=== PATIENT | female | born 1945 | race Caucasian/White ===

== ENCOUNTER 2022-03-29 15:45 | Observation (INO) ==
[2022-03-29 17:17] VITALS: BMI 32.1
[2022-03-29] MEDS: ROCEPHIN VIAL 1 GRAM 1 G in NS 100 ML IV 100 ML IV SCH (17:54)
[2022-03-29] MEDS: TORADOL 30 MG VIAL IVP PRN (17:55)
[2022-03-29] MEDS: NS 1,000 ML IV 1,000 ML IV SCH (17:55)
[2022-03-29 17:58] LABS: EOSINOPHILS # (AUTO) 0.3 x10^3/uL (0.0-0.2); EOSINOPHILS % (AUTO) 4.9 % (0.9-2.9); ERYTHROCYTE SEDIMENTATION RATE 19 MM/HOUR (0-20); HEMOGLOBIN 10.8 g/dL (12.0-16.0); LYMPHOCYTES # (AUTO) 1.3 X10^3/uL (1.3-2.9); MONOCYTES # (AUTO) 0.3 x10^3/uL (0.3-0.8)
[2022-03-29 18:04] LABS: BASOPHILS # (AUTO) 0.1 X10^3/uL (0.0-0.1); BASOPHILS % (AUTO) 1.1 % (0.2-1.0); HEMATOCRIT 30.7 % (36.0-47.0); LYMPHOCYTES % (AUTO) 22.3 % (21.0-51.0); MEAN CORPUSCULAR HEMOGLOBIN 28.2 pg (27.0-34.0); MEAN CORPUSCULAR HGB CONC 35.3 g/dL (33.0-35.0); MEAN CORPUSCULAR VOLUME 79.9 fL (80.0-100.0); MEAN PLATELET VOLUME 9.3 fL (7.4-11.0); MONOCYTES % (AUTO) 4.8 % (0.0-13.0); NEUTROPHILS % (AUTO) 66.9 % (42.0-75.0); RED BLOOD COUNT 3.85 X10^6/uL (3.5-5.4); RED CELL DISTRIBUTION WIDTH 15.1 % (11.6-16.5); WHITE BLOOD COUNT 5.9 X10^3/uL (3.6-10.0)
--- NOTE | 2022-03-29 18:07 | RAD ---
HISTORYWEAKNESS, DIZZINESSSTUDYCHEST, 1 VIEWCOMPARISONDeceer 2019[facility] AP portable projection, 1 imageFINDINGSNo cardiomegaly.No focal airspace disease.No pleural effusion.No pneumothorax.No acute osseous abnormality.IMPRESSIONNo imaging findings of acute cardiopulmonary disease.Electronically signed by: Harrison Doss (Mar 29, 2022 18:06:13)
[2022-03-29 18:22] LABS: RHEUMATOID FACTOR NEGATIVE (NEGATIVE)
[2022-03-29 18:25] LABS: ALANINE AMINOTRANSFERASE 26 Units/L (12-78); ALBUMIN 3.7 g/dL (3.4-5.0); ALKALINE PHOSPHATASE 67 Units/L (46-116); ASPARTATE AMINO TRANSFERASE 31 Units/L (15-37); BLOOD UREA NITROGEN 22 mg/dL (7-18); CALCIUM 9.5 mg/dL (8.5-10.1); CHLORIDE 99 mmol/L (98-107); COR NA(FOR HYPERGLY) 138 mmol/L (136-145); CREATINE KINASE 102 Units/L (26-192); CREATININE 1.08 mg/dL (0.55-1.02); FREE T4 (FREE THYROXINE) 0.87 ng/dL (0.76-1.46); SODIUM 136 mmol/L (136-145); TOTAL PROTEIN 7.2 g/dL (6.4-8.2); TSH (3RD GENERATION) 2.203 uIU/mL (0.358-3.74); eGFR NON BLACK RACES 52 (>60)
[2022-03-29 18:27] LABS: BILIRUBIN,URINE 1+ (NEGATIVE); BLOOD/HEMOGLOBIN,URINE 2+ (NEGATIVE); GLUCOSE, URINE NEGATIVE (NEGATIVE); KETONES,URINE 1+ (NEGATIVE); LEUKOCYTE ESTERASE ,URINE 3+ (NEGATIVE); NITRITES,URINE NEGATIVE (NEGATIVE); PROTEIN,URINE 2+ (NEGATIVE); UROBILINOGEN,URINE 2+ (NORMAL)
[2022-03-29 18:39] LABS: APPEARANCE,URINE HAZY (CLEAR); BACTERIA,URINE TRACE /HPF (NEGATIVE); COLOR,URINE YELLOW (YELLOW); SQUAMOUS EPITHELIAL CELL,UR MODERATE /HPF (NEGATIVE)
[2022-03-29] MEDS: AMBIEN PO PRN (20:22)
[2022-03-30] MEDS: NS 1,000 ML IV 1,000 ML IV SCH ×4 (03:21→18:15)
[2022-03-30 06:20] LABS: BASOPHILS % (AUTO) 0.7 % (0.2-1.0); EOSINOPHILS # (AUTO) 0.3 x10^3/uL (0.0-0.2); EOSINOPHILS % (AUTO) 5.4 % (0.9-2.9); HEMATOCRIT 28.9 % (36.0-47.0); HEMOGLOBIN 10.2 g/dL (12.0-16.0); LYMPHOCYTES # (AUTO) 1.8 X10^3/uL (1.3-2.9); LYMPHOCYTES % (AUTO) 31.2 % (21.0-51.0); MEAN CORPUSCULAR HEMOGLOBIN 28.1 pg (27.0-34.0); MEAN CORPUSCULAR HGB CONC 35.3 g/dL (33.0-35.0); MEAN CORPUSCULAR VOLUME 79.7 fL (80.0-100.0); MEAN PLATELET VOLUME 9.3 fL (7.4-11.0); MONOCYTES # (AUTO) 0.4 x10^3/uL (0.3-0.8); MONOCYTES % (AUTO) 6.7 % (0.0-13.0); NEUTROPHILS # (AUTO) 3.3 x10^3/uL (2.2-4.8); RED BLOOD COUNT 3.62 X10^6/uL (3.5-5.4); RED CELL DISTRIBUTION WIDTH 15.1 % (11.6-16.5); WHITE BLOOD COUNT 5.8 X10^3/uL (3.6-10.0)
[2022-03-30 06:42] LABS: ALANINE AMINOTRANSFERASE 21 Units/L (12-78); ALBUMIN 3.2 g/dL (3.4-5.0); ALKALINE PHOSPHATASE 57 Units/L (46-116); ASPARTATE AMINO TRANSFERASE 18 Units/L (15-37); BLOOD UREA NITROGEN 26 mg/dL (7-18); CARBON DIOXIDE 26.4 mmol/L (21-32); CHLORIDE 104 mmol/L (98-107); COR CA(FOR HYPOALB) 9.6 mg/dL (8.5-10.1); CREATININE 0.95 mg/dL (0.55-1.02); SODIUM 139 mmol/L (136-145); TOTAL PROTEIN 6.4 g/dL (6.4-8.2); eGFR NON BLACK RACES > 60 (>60)
--- NOTE | 2022-03-30 08:07 | CT ---
HISTORYDizziness, visual disturbanceSTUDYCT head without contrastTechnique: Axial noncontrast images with coronal and sagittal reformats. Dose reduction procedures were used with mA/kv adjusted for body size.COMPARISONNoneFINDINGSThe ventricles, cortical sulci, and other CSF spaces are enlarged consistent with generalized atrophy likely age related. There are no focal areas of abnormal attenuation to suggest recent or remote CVA, hemorrhage, mass lesion, or extra-axial fluid collection. The visualized sinuses are clear. The calvarium is intact. If acute CVA is a strong clinical consideration MRI with diffusion imaging would be of further diagnostic value and should be considered.IMPRESSIONNo acute intracranial abnormality identifiedGeneralized atrophy likely age related.Electronically signed by: ESTIVEN MARK (Mar 30, 2022 08:05:48)
[2022-03-30] MEDS: ROCEPHIN VIAL 1 GRAM 1 G in NS 100 ML IV 100 ML IV SCH (08:53)
[2022-03-30] MEDS: TORADOL 30 MG VIAL IVP PRN ×3 (09:07→21:21)
[2022-03-30] MEDS: LOVENOX INJ 40 MG SYR SC SCH (10:53)
[2022-03-30] MEDS: SOLU-Medrol 40 MG VIAL IVP SCH ×3 (10:53→21:20)
[2022-03-30] MEDS: ANTIVERT TAB 25 MG PO SCH ×2 (10:54→21:20)
--- NOTE | 2022-03-30 11:20 | RAD ---
HISTORYNECK PAINSTUDYX-ray cervical spine three viewsCOMPARISONNoneFINDINGSC7 and T1 are not well visualized on the lateral view. There is reversal of lordosis in the midcervical spine. Mild arthritic facet changes are seen and small posterior osteophytes are seen in the mid cervical spine. No subluxation is seen. No prevertebral soft tissue swelling or C-spine fracture is seen.IMPRESSIONReversed lordosis could be positional or due to muscular spasmMild diffuse degenerative changes are suspected in the cervical spine.Electronically signed by: Jin Villarreal (Mar 30, 2022 11:18:46)
[2022-03-30] MEDS ORDERED: XANAX PO PRN (15:53)
[2022-03-30] MEDS: SYNTHROID 75 mcg TAB PO SCH (17:44)
[2022-03-30] MEDS: AMBIEN PO PRN (21:22)
[2022-03-31] MEDS: SOLU-Medrol 40 MG VIAL IVP SCH (05:28)
[2022-03-31] MEDS: NS 1,000 ML IV 1,000 ML IV SCH (05:29)
[2022-03-31] MEDS: TORADOL 30 MG VIAL IVP PRN (05:31)
[2022-03-31 06:14] LABS: BASOPHILS % (AUTO) 0.1 % (0.2-1.0); HEMATOCRIT 28.4 % (36.0-47.0); LYMPHOCYTES # (AUTO) 1.1 X10^3/uL (1.3-2.9); LYMPHOCYTES % (AUTO) 13.8 % (21.0-51.0); MEAN CORPUSCULAR HEMOGLOBIN 28.2 pg (27.0-34.0); MEAN CORPUSCULAR HGB CONC 35.2 g/dL (33.0-35.0); MEAN PLATELET VOLUME 9.6 fL (7.4-11.0); MONOCYTES # (AUTO) 0.1 x10^3/uL (0.3-0.8); MONOCYTES % (AUTO) 0.6 % (0.0-13.0); NEUTROPHILS # (AUTO) 6.8 x10^3/uL (2.2-4.8); NEUTROPHILS % (AUTO) 85.5 % (42.0-75.0); RED BLOOD COUNT 3.54 X10^6/uL (3.5-5.4); RED CELL DISTRIBUTION WIDTH 14.9 % (11.6-16.5); WHITE BLOOD COUNT 7.9 X10^3/uL (3.6-10.0)
[2022-03-31 06:30] LABS: ALANINE AMINOTRANSFERASE 22 Units/L (12-78); ALBUMIN 3.3 g/dL (3.4-5.0); ALKALINE PHOSPHATASE 58 Units/L (46-116); ASPARTATE AMINO TRANSFERASE 16 Units/L (15-37); BLOOD UREA NITROGEN 18 mg/dL (7-18); CALCIUM 8.2 mg/dL (8.5-10.1); CHLORIDE 103 mmol/L (98-107); COR CA(FOR HYPOALB) 8.8 mg/dL (8.5-10.1); COR NA(FOR HYPERGLY) 139 mmol/L (136-145); CREATININE 0.84 mg/dL (0.55-1.02); SODIUM 138 mmol/L (136-145); TOTAL PROTEIN 6.5 g/dL (6.4-8.2); eGFR NON BLACK RACES > 60 (>60)
[2022-03-31] MEDS ORDERED: MICRO K EXTEN CAP 10 MEQ PO PRN (08:03)
[2022-03-31] MEDS ORDERED: POTASSIUM CHLORIDE LIQ 20 MEQ UDC PO PRN (08:03)
[2022-03-31] MEDS ORDERED: POTASSIUM CHL 40 MEQ/NS 0.45% 500 ML IV PRN (08:03)
[2022-03-31] MEDS ORDERED: K-RIDER 10 MEQ/NS 100 ML 10 MEQ/100 ML BAG IV PRN (08:03)
[2022-03-31] MEDS ORDERED: KLOR-CON PO PRN (08:03)
[2022-03-31] MEDS ORDERED: POTASSIUM CHL 60 MEQ/NS 0.45% 500 ML IV PRN (08:03)
[2022-03-31] MEDS ORDERED: K-DUR TAB 20 MEQ PO PRN (08:03)
[2022-03-31] MEDS: ANTIVERT TAB 25 MG PO SCH (08:38)
[2022-03-31] MEDS: SYNTHROID 75 mcg TAB PO SCH (08:38)
[2022-03-31] MEDS: ROCEPHIN VIAL 1 GRAM 1 G in NS 100 ML IV 100 ML IV SCH (08:39)
[2022-03-31] MEDS: LOVENOX INJ 40 MG SYR SC SCH (08:40)
[2022-03-31 10:43] VITALS: BP 160/79
--- NOTE | 2022-03-31 11:01 | DR.H&P ---
H&P - History & Physical for Day of: H&P Date: 03/29/22 - Chief Complaint Chief Complaint: ACHING ALL OVER, SOB, GENERALIZED PAIN, INCREASED ANXIETY, DIZZINESS, BLURRED VISION - History of Present Illness History of Present Illness: IS A 77 YEAR OLD PATIENT OF OURS. SHE WAS SEEN IN THE OFFICE EARLIER IN THE DAY FOR COMPLAINTS OF ACHING ALL OVER, BILATERAL HAND EDEMA, SHORTNESS OF BREATH, BILATERAL SHOULDER PAIN, BILATERAL HAND AND LEG PAIN, DIZZINESS, AND INCREASED ANXIETY. SHE ALSO DESCRIBES NUMBNESS TO BILATERAL HANDS AND TO THE DORSAL ASPECTS OF BILATERAL FEET. SHE REPORTS THAT SHE STARTED HAVING A HEADACHE AND BLURRED VISION ONE DAY PRIOR TO ARRIVAL. PATIENT REPORTS THAT THE SYMPTOMS STARTED 3-4 DAYS AGO AND HAVE PROGRESSIVELY GOTTEN WORSE. HER PMH INCLUDES: ASTHMA, GERD, ARTHRITIS, LOW BACK PAIN, HYPOTHYROIDISM, HYSTERECTOMY, AND BACK SURGERY. SHE WAS ADMITTED TO THE HOSPITAL OBSERVATION STATUS FOR FURTHER EVALUATION AND TREATMENT. ON ARRIVAL, VITALS WERE: 97.5-79-20-95%RA-177/81. LABS WERE OBTAINED. WBC 5.9, RBC 3.85, HGB 10.8, HCT 30.7, SODIUM 136, POTASSIUM 3.6, CHLORIDE 99, BUN 22, CREATININE 1.08, GLUCOSE 200, CALCIUM 9.5, CREATINE KINASE 102, TROPONIN 4.8, TOTAL PROTEIN 7.2, ALBUMIN 3.7, FREE T4 0.87, TSH 2.203. URINALYSIS REVEALED: WBC 20-30, RBC 5-10, BACTERIA TRACE, LEUKOCYTES 3+, NITRITE NEGATIVE. RHEUMATOID FACTOR NEGATIVE. COVID, INFLUENZA, RSV, AND STREP NEGATIVE. URINE AND BLOOD CULTURES WERE SET UP. A CHEST XRAY WAS OBTAINED AND REVEALED: No imaging findings of acute cardiopulmonary disease. EKG REVEALED: NSR WITH HR 82. A BRAIN CT WAS OBTAINED AND REVEALED: No acute intracranial abnormality identified. Generalized atrophy likely age related. SHE WAS STARTED ON NORMAL SALINE AT 125 ML/HR, ROCEPHIN 1G IV DAILY, LOVENOX 40MG SC DAILY, SOLU-MEDROL 40MG IV Q8H, TORADOL 30MG IV Q6H OR N, MECLIZINE 12.5MG PO BID, XANAX 0.5MG PO BID PRN, SYNTHROID 75MCG PO DAILY, AMBIEN 5MG PO HS PRN, AND THE POTASSIUM PROTOCOL. OTHERWISE, WE PLAN TO FOLLOW- UP WITH AM LABS AND CONTINUE TO MONITOR. TIME SPENT ON CLINICAL ASSESSMENT, REVIWING LABS AND IMAGING, DECISION MAKING, AND DOCUMENTATION GREATER THAN 75 MINUTES. - Past Medical History Past Medical History: Arthritis, Asthma, Dyslipidemia, GERD, Hypothyroidism - Past Surgical History Surgical History: Hysterectomy - Family History Family Medical History: Cancer, [place] - Social History Have you used tobacco products in the last 12 months: No Type of Tobacco Use: None Alcohol Use: None Drug Use: None - Medications Home Medications: No Known Drug Allergies Allergy (Verified 08/01/20 11:10) CONTINUE taking the following medications levothyroxine 75 mcg tablet 75 mcg PO QDAY 03/30/22 [History] zolpidem 5 mg tablet 5 mg PO QHS PRN 03/30/22 [History] New Prescriptions ciprofloxacin HCl 500 mg tablet 500 mg PO BID #20 tabs 03/31/22 [Rx] lorazepam 0.5 mg tablet (Ativan) 0.5 mg PO BID PRN #60 tabs 03/31/22 [Rx] meclizine 12.5 mg tablet 12.5 mg PO BID #60 tabs 03/31/22 [Rx] methylprednisolone 4 mg tablets in a dose pack (Medrol (Ney)) See Rx Instructions .Route .COMPLEX #1 ea 03/31/22 [Rx] tramadol 50 mg tablet 50 mg PO Q6H PRN #120 tabs 03/31/22 [Rx] - Review of Systems Constitutional: Weakness Eyes: No Symptoms Reported ENT: No Symptoms Reported Respiratory: Shortness of Breath Cardiovascular: Edema, Light Headedness Gastrointestinal: No Symptoms Reported Genitourinary: No Symptoms Reported Musculoskeletal: See HPI, Shoulder Pain, Hand Pain, Foot Pain Skin: No Symptoms Reported Neurological: Weakness - Physical Exam Vital Signs: Temperature 98.7 F Pulse Rate [Left Radial] 80 Pulse Rate [Brachial] 94 Respiratory Rate 20 Blood Pressure [Right Arm] 160/79 Blood Pressure 142/69 O2 Sat by Pulse Oximetry 98 Oriented: Normal Eyes: Normal Ear: Normal Nose: Normal Throat: Normal Respiratory: Diminished Throughout Cardiovascular: Normal : Normal Auscultation: Bowel Sounds: Normal Palpation: Normal Tenderness: Normal Skin: Normal Musculoskeletal: Right, Left, Shoulder, Hand, Foot, Swelling, Tender Psychiatric: Normal Mood Description: Calm Affect: Normal Speech Pattern: Clear - Assessment/Plan (1) Urinary tract infection Qualifiers: Urinary tract infection type: acute cystitis Hematuria presence: with hematuria Qualified Code(s): N30.01 - Acute cystitis with hematuria Status: Acute Plan: ADMIT, NORMAL SALINE AT 125 ML/HR, ROCEPHIN 1G IV DAILY, LOVENOX 40MG SC DAILY, SOLU-MEDROL 40MG IV Q8H, TORADOL 30MG IV Q6H PRN, MECLIZINE 12.5MG PO BID, XANAX 0.5MG PO BID PRN, SYNTHROID 75MCG PO DAILY, AMBIEN 5MG PO HS PRN, AND THE POTASSIUM PROTOCOL. (2) Vertigo Status: Acute (3) Hypokalemia Status: Acute (4) Dizziness Status: Acute (5) Headache Qualifiers: Headache type: unspecified Headache chronicity pattern: acute headache Intractability: not intractable Qualified Code(s): R51.9 - Headache, unspecified Status: Acute (6) GWEN (generalized anxiety disorder) Status: Chronic (7) Insomnia Qualifiers: Insomnia type: primary Qualified Code(s): F51.01 - Primary insomnia Status: Chronic (8) HTN (hypertension) Qualifiers: Hypertension type: primary hypertension Qualified Code(s): I10 - Essential (primary) hypertension Status: Chronic - Allergies Allergies/Adverse Reactions: Allergies Allergy/AdvReac Type Severity Reaction Status Date / Time No Known Drug Allergies Allergy Verified 08/01/20 11:10
== END 2022-03-31 10:46 | disposition home or self-care (01) ==
LOC: MED/SURG
PROVIDERS: ADMIT Internal Medicine; ATTEND Internal Medicine
DX: F41.8 Other specified anxiety disorders; E03.8 Other specified hypothyroidism; R53.1 Weakness; H53.8 Other visual disturbances; R51.9 Headache, unspecified; F51.01 Primary insomnia; R42 Dizziness and giddiness; R06.02 Shortness of breath; E87.6 Hypokalemia; I10 Essential (primary) hypertension; M54.2 Cervicalgia; B96.29 Other Escherichia coli [E. coli] as the cause of diseases classified elsewhere; R20.0 Anesthesia of skin; N30.01 Acute cystitis with hematuria; Z20.822 Contact with and (suspected) exposure to COVID-19